=== PATIENT | female | born 1990 | race Caucasian/White ===

== ENCOUNTER 2016-07-18 02:06 | Emergency (ER) | payer OTHER ==
[~2016-07-18] VITALS: Ht 154.9 cm; Wt 66.2 kg
--- NOTE | 2016-07-18 02:53 | ED PSYCHIATRIC COMPLAINT ---
See Addendum History of Present Illness General Chief Complaint: Psychiatric Related Complaint Stated Complaint: +SI Source: patient Exam Limitations: no limitations Vital Signs & Intake/Output Vital Signs & Intake/Output Vital Signs Date Time Temp Pulse Resp B/P Pulse O2 O2 Flow FiO2 Ox Delivery Rate 07/18 0223 98.0 79 18 132/90 100 Room Air Allergies Coded Allergies: MDX - Amoxicillin (AMOXICILLIN) (PETECHIAE 09/23/12) MDX - Fish Oil (FISH OIL) (UNKNOWN 09/23/12) MDX - MILK (MILK) (UNKNOWN 09/23/12) Triage Note: PT TO ED C/O +SI. PT HAS HX OF BIPOLAR DISORDER. PT STATES SHE WOULD LIKE TO TAKE ENTIRE BOTTLE OF TRAZADONE AND SERAQUIL. PT STATES SHE HAS HAD SUICIDAL THOUGHTS BEFORE BUT STATES SHE HAS NEVER "BEEN DESERPATE TO " BEFORE. Triage Nurses Notes Reviewed? yes Onset: Gradual Duration: week(s): Timing: recent history Severity: moderate Associated Symptoms: anxiety, suicidal ideation : No Patient currently breastfeeds: No HPI: 25-year-old woman h/o bipolar disorder stopped her meds several months ago after moving up from [place]. She notes that she has felt suicidal for the past several weeks, and would plan to take seroquel and trazodone pills. She notes no hallucinations, denies drug abuse, and is otherwise well. Past History Travel History Traveled to [place] past 21 day No Medical History Any Pertinent Medical History? see below for history Neurological: NONE EENT: NONE Cardiovascular: NONE Respiratory: asthma Gastrointestinal: NONE Hepatic: NONE Renal: NONE Musculoskeletal: NONE Psychiatric: anxiety, bipolar disease Endocrine: NONE Blood Disorders: NONE Cancer(s): NONE Surgical History Surgical History: none Psychosocial History What is your primary language Turkmen Tobacco Use: Current Daily Use Daily Tobacco Use Amount/Type: =< 4 Cigarettes daily ETOH Use: denies use Illicit Drug Use: denies illicit drug use Family History Hx Contributory? No Review of Systems Review of Systems Constitutional: Reports: no symptoms. EENTM: Reports: no symptoms. Respiratory: Reports: no symptoms. Cardiovascular: Reports: no symptoms. GI: Reports: no symptoms. Genitourinary: Reports: no symptoms. Musculoskeletal: Reports: no symptoms. Skin: Reports: no symptoms. Neurological/Psychological: Reports: no symptoms. Hematologic/Endocrine: Reports: no symptoms. Immunologic/Allergic: Reports: no symptoms. All Other Systems: Reviewed and Negative Physical Exam Physical Exam General Appearance: well developed/nourished, mild distress Head: atraumatic Eyes: Bilateral: normal appearance. Ears, Nose, Throat: normal pharynx, normal ENT inspection, hearing grossly normal Neck: normal inspection, supple Respiratory: normal breath sounds Cardiovascular: regular rate/rhythm Gastrointestinal: soft, non-tender Extremities: normal range of motion Neurological/Psychiatric: anxious, oriented x 3 Appearance/Memory/Insight: disheveled, impaired insight Behavoir/Eye Contact/Speech: cooperative Thoughts/Hallucinations: no apparent hallucination Skin: intact, normal color, warm/dry SAD PERSONS SAD PERSONS Response Value Age <19 or >45 years? yes 1 Rational Thinking Loss? yes 2 Total 3 SAD PERSONS Done? yes Progress Differential Diagnosis: bipolar vs other. Plan of Care: Orders Procedure Date/time Status Regular Diet 07/18 B Active Continuous Observation Monitor 07/18 254 Active ED CRISIS PSYCH CONSULT 07/18 254 Active URINE DRUG SCREEN FOR ER ONLY 07/19 215 Complete HUMAN BETA HCG SCREEN 07/19 215 Complete ETHANOL 07/19 215 Complete COMPREHENSIVE METABOLIC PANEL 07/19 215 Complete CBC WITHOUT DIFFERENTIAL 07/19 215 Complete Laboratory Tests 07/18/16 0250: Anion Gap 10, Estimated GFR > 60, BUN/Creatinine Ratio 18.3, Glucose 102 H, Calcium 9.8, Total Bilirubin 0.6, AST 25, ALT 34, Alkaline Phosphatase 55, Total Protein 7.6, Albumin 4.4, Globulin 3.2, Albumin/Globulin Ratio 1.4, Total Beta HCG NEGATIVE, CBC w Diff NO MAN DIFF REQ, RBC 5.02, MCV 88.6, MCH 29.7, RDW 13.5 , MPV 9.7, Gran % 67.6, Lymphocytes % 23.9, Monocytes % 6.6, Eosinophils % 1.5, Basophils % 0.4, Absolute Granulocytes 6.0, Absolute Lymphocytes 2.1, Absolute Monocytes 0.6, Absolute Eosinophils 0.1, Absolute Basophils 0, PUBS MCHC 33.5, Serum Alcohol < 10.0 07/18/16 0240: Urine Opiates Screen < 100.00, Methadone Screen < 40, Barbiturate Screen < 60, Ur Phencyclidine Scrn < 6.00, Amphetamines Screen < 100, U Benzodiazepines Scrn < 85, Urine Cocaine Screen < 50, Urine Cannabis Screen < 5.00 Hand-Off Endorsed To: SANG PALACIO MD Endorsed Time: 0700 Pending: consult Departure Departure Disposition: STILL A PATIENT Condition: Stable Clinical Impression Primary Impression: Bipolar 1 disorder Secondary Impressions: Suicidal ideation Referrals: PATIENT HAS NO PRIMARY CARE DR (PCP/Family) Departure Forms: Customer Survey General Discharge Information
[2016-07-18 03:07] LABS: ABSOLUTE BASOPHIL COUNT 0 /CUMM (0.0-0.2); ABSOLUTE EOSINOPHIL COUNT 0.1 /CUMM (0.0-0.7); ABSOLUTE LYMPH COUNT 2.1 /CUMM (1.2-3.4); ABSOLUTE MONOCYTE COUNT 0.6 /CUMM (0.10-0.60); BASOPHIL % 0.4 % (0.0-2.0); EOSINOPHIL % 1.5 % (0-5); GRANULOCYTE % 67.6 % (42.2-75.2); HEMATOCRIT 44.5 % (37-47); MEAN CORPUSCULAR HGB 29.7 PG (27.0-31.0); MEAN CORPUSCULAR HGB CONC 33.5 G/DL (33.0-37.0); MEAN CORPUSCULAR VOLUME 88.6 FL (81.0-99.0); MEAN PLATELET VOLUME 9.7 FL (7.4-10.4); PLATELET COUNT 224 /CUMM (130-400); RBC DISTRIBUTION WIDTH 13.5 % (11.5-14.5); RED BLOOD CELL CT 5.02 /CUMM (4.20-5.40); WHITE BLOOD CELL COUNT 8.8 /CUMM (4.8-10.8)
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
[2016-07-18 12:22] VITALS: BP 124/76
--- NOTE | 2016-07-18 13:11 | ED PSYCHIATRIST/APRN CONSULT ---
Psychiatrist/TARRING MACHINE OPERATOR ED Consult Assessment and Plan: Reviewed ED and crisis notes and d/w crisis SW. Met with Fatou and her mother along with crisis SW today. Please see crisis SW notes for details. Briefly, 25 y/o domiciled, employed, engaged to be CF with h/o significant borderline personality disorder recently in residential treatment in [place], presented to overnight "because I was overwhelmed and wasn't sure where I was on the SUDS scale". No acute stressor identified, at that time attempted to call her mother and her fiance neither of whom answered. Then called suicide hotline who recommended ED eval and she drove herself to . Reports chronic thoughts of self-harm and harm to others. Denies ever having done either. Denies any past psychiatric hospitalizations. Highly versed in DBT techniques and described her desire for discharge to use these techniques. She is able to reflect that she was disturbed at not being able to reach anyone to help her. She and her mother agree that he most pressing concern is finding appropriate treatment to continue her DBT skills after her insurance stopped paying for residential treatment. She feels safe to be discharged home with referral for outpatient treatment at . MSE: well-groomed CF sitting on hospital bed. Intense eye contact. Clutching stuffed bear. Mild pmotor agitation. Speech loud, mildly difficult to interrupt, o/w wnl. Mood "I was upset". Affect mildly labile though congruent, non-bizarre. TP perseverative, detail oriented, TC inclusive of numerous psychological medical terminologies. Reports baseline thoughts of self harm with chronic fantasy of taking pills but denies any acute intent to harm herself or others. Cognition was grossly intact. I/J were fair. A/P: Fatou is a 25 y/o CF with borderline personality disorder presenting to in the context of situational feelings of abandonment last evening. She appears to have since reconstituted and while she certainly evidenced a personality structure highly consistent with BPD, she has numerous protective factors currently in place, including her mother staying with her tonight, her mother disposing of any pills around her home (she takes no prescribed meds), her lack of substance abuse, her future orientation toward being engaged to be , and current employment, which she asks us for a "return to work" note so that she can return on Wednesday. The last piece to reduce her risk is referral to [facility] which she is fully accepting of, as well as resources to other DBT-oriented programs in the area, including [facility]. Her BPD does put her at chronic risk, though I do not feel that inpatient hospitalization is warranted at this point and may indeed promote a maladaptive pattern. Her mother, an ER nurse who is very close with her daughter, is in full agreement with this plan. Will discharge home.
== END 2016-07-18 12:23 ==
LOC: ERH 02:06
PROVIDERS: Pediatrics
DX: F31.9 Bipolar disorder, unspecified (principal); R45.851 Suicidal ideations
CPT/HCPCS: 80307; G0463; G0480

== ENCOUNTER 2016-08-06 09:20 | Emergency (ER) | payer OTHER ==
[~2016-08-06] VITALS: Ht 154.9 cm; Wt 67.1 kg
--- NOTE | 2016-08-06 09:59 | ED GI/GU/ABDOMINAL COMPLAINT ---
History of Present Illness General Chief Complaint: Abdominal Pain/Flank Pain Stated Complaint: ABD PAIN Source: patient, old records Exam Limitations: no limitations Vital Signs & Intake/Output Vital Signs & Intake/Output Vital Signs Date Time Temp Pulse Resp B/P B/P Pulse O2 O2 Flow FiO2 Mean Ox Delivery Rate 08/06 1345 97.2 64 16 108/70 98 Room Air 08/06 1237 96.9 66 16 110/62 100 Room Air 08/06 1136 97.3 63 16 115/76 99 Room Air 08/06 0939 98.4 78 16 130/82 98 Room Air Allergies Coded Allergies: latex (Intermediate, HIVES 07/18/16) amoxicillin (PETECHIAE 08/06/16) fish oil (UNKNOWN 08/06/16) milk (UNKNOWN 08/06/16) oxcarbazepine (From TRILEPTAL) (UNKNOWN 07/23/16) Reconcile Medications Dicyclomine Hydrochloride (Bentyl) 10 MG CAPSULE 1 CAP PO TID PRN abdominal cramping Ibuprofen 800 MG TABLET 1 TAB PO Q8 PRN PAIN Ondansetron (Zofran Odt) 4 MG TAB.RAPDIS 1 TAB SL TID PRN nausea Triage Note: 25 Y/0 FEMALE C/O DIFFUSE ABDOMINAL "CRAMPING" SINCE LAST NIGHT. HAD DIARRHEA X 2 DAYS, TOOK IMMODIUM LAST NIGHT AND HAS HAD CRAMPING SINCE, "IT FEELS LIKE I HAVE TO GO BUT THEN DONT". DENIES OTHER COMPLAINTS. AFEBRILE. Triage Nurses Notes Reviewed? yes ? N Is pt currently ? No HPI: Patient is a 25-year-old female presents complaining of diarrhea and diffuse abdominal pain. Symptoms for approximately 1.5-2 days. Approximately 10-12 episodes of diarrhea. Patient took Imodium last night, has not had a bowel movement since then. Since taking the Imodium patient has developed severe cramping diffuse abdominal pain. Symptoms are currently severe. Associated nausea. Patient reports that she has been eating at several restaurants from Wednesday to Wednesday, no nose that she was with has had similar symptoms. Denies sick contacts, recent antibiotic use, fevers, vomiting, hematochezia. Past History Travel History Traveled to [place] past 21 day No Medical History Any Pertinent Medical History? see below for history Neurological: NONE EENT: NONE Cardiovascular: NONE Respiratory: asthma Gastrointestinal: NONE Hepatic: NONE Renal: NONE Musculoskeletal: NONE Psychiatric: anxiety, bipolar disease Endocrine: NONE Blood Disorders: NONE Cancer(s): NONE Surgical History Surgical History: none Psychosocial History Who do you live with Family What is your primary language Setswana Tobacco Use: Current Not Daily Family History Hx Contributory? No Review of Systems Review of Systems Constitutional: Reports: weakness. Denies: chills, fever. EENTM: Reports: no symptoms. Respiratory: Denies: cough, short of breath. Cardiovascular: Denies: chest pain. GI: Reports: see HPI. Genitourinary: Denies: no symptoms (chronic incontinence). Musculoskeletal: Reports: no symptoms. Skin: Reports: no symptoms. Neurological/Psychological: Reports: no symptoms. Hematologic/Endocrine: Reports: no symptoms. Immunologic/Allergic: Reports: no symptoms. Physical Exam Physical Exam General Appearance: well developed/nourished, alert, awake Head: atraumatic, normal appearance Eyes: Bilateral: normal appearance, PERRL, EOMI. Ears, Nose, Throat, Mouth: hearing grossly normal, moist mucous membrane Neck: normal inspection, supple, full range of motion Respiratory: normal breath sounds, chest non-tender, no respiratory distress, lungs clear Cardiovascular: regular rate/rhythm Gastrointestinal: normal bowel sounds, soft, diffuse tenderness with mild guarding. Back: normal inspection, normal range of motion Extremities: normal range of motion Neurologic/Psych: no motor/sensory deficits, awake, alert, oriented x 3, normal gait, normal mood/affect Skin: intact, normal color, warm/dry Core Measures ACS in differential dx? No Severe Sepsis Present: No Septic Shock Present: No Progress Differential Diagnosis: GASTROENTERITIS, INFECTIOUS COLITIS, FOOD POISONING, ELECTROLYTE ABNORMALITY, DEHYDRATION, SEPSIS Plan of Care: Orders Procedure Date/time Status Regular Diet 08/06 L Active CULTURE,STOOL 08/06 1015 Active COMPREHENSIVE METABOLIC PANEL 08/06 1015 Complete CBC WITHOUT DIFFERENTIAL 08/06 1015 Complete URINE 08/06 0941 Complete URINALYSIS 08/06 0941 Complete Laboratory Tests 08/06/16 1120: Urine Color YEL, Urine Clarity CLEAR, Urine pH 6.0, Ur Specific [place] <= 1.005 , Urine Protein NEG, Urine Ketones NEG, Urine Nitrite NEG, Urine Bilirubin NEG, Urine Urobilinogen 0.2, Ur Leukocyte Esterase NEG, Ur Microscopic EXAM NOT REQUIRED, Urine Hemoglobin NEG, Urine Glucose NEG, Urine Test NEGATIVE 08/06/16 1035: Anion Gap 10, Estimated GFR > 60, BUN/Creatinine Ratio 10.0, Glucose 84, Calcium 8.6, Total Bilirubin 0.5, AST 24, ALT 35, Alkaline Phosphatase 46, Total Protein 6.5, Albumin 3.7, Globulin 2.8, Albumin/Globulin Ratio 1.3, CBC w Diff NO MAN DIFF REQ, RBC 4.74, MCV 88.4, MCH 29.5, RDW 13.6, MPV 9.4, Gran % 65.4, Lymphocytes % 21.6, Monocytes % 11.8 H, Eosinophils % 0.8, Basophils % 0.4, Absolute Granulocytes 2.3, Absolute Lymphocytes 0.8 L, Absolute Monocytes 0.4, Absolute Eosinophils 0, Absolute Basophils 0, PUBS MCHC 33.4 Microbiology 08/06 1015 STOOL: Stool Culture - ORD 08/06/2016 12:55:45 PM: Results of CT scan and labs discussed with patient. Patient appears to be resting comfortably. Continues with moderate cramping. No episodes of diarrhea in the emergency department. Bentyl ordered. Patient tolerating food appropriately. Patient nontoxic appearing. Appears stable for discharge (KINJAL QUILES,BYRON) Diagnostic Imaging: Viewed by Me: CT Scan. Discussed w/RAD: CT Scan. Radiology Impression: PATIENT: EDGARD LÓPEZ PRESENT AGE: 25 PATIENT ACCOUNT NO: [id number] : 92 LOCATION: [facility] ORDERING PHYSICIAN: BYRON QUILES SERVICE DATE: 08/06/16 EXAM TYPE: CAT - CT ABD & PELVIS W IV CONTRAST EXAMINATION: CT ABDOMEN AND PELVIS WITH CONTRAST CLINICAL INFORMATION: Abdominal pain and tenderness. Diarrhea. COMPARISON: None. TECHNIQUE: Multidetector volumetric imaging was performed of the abdomen and pelvis before and after the IV administration of 94 mL of Optiray 320 intravenous contrast. Sagittal and coronal reformatted images were obtained on the technologist's workstation. DLP: 335 mGy-cm. FINDINGS: LUNG BASES: Unremarkable. LIVER AND SPLEEN: Unremarkable. PANCREAS GALLBLADDER AND BILIARY TREE: Unremarkable. KIDNEYS, URETERS, AND ADRENALS: Unremarkable. URINARY BLADDER: Unremarkable. GI TRACT: Unremarkable. There are multiple small nonspecific-appearing lymph nodes along the small bowel mesentery without evidence of soft tissue stranding. Findings are nonspecific, however mesenteric panniculitis can have a similar appearance as can inflammatory bowel disease and lymphoma, however bowel loops appear unremarkable, and no pathologic-appearing sized lymph nodes are seen. PERITONEAL CAVITY: There is a small amount of intraperitoneal free fluid in the cul-de-sac. RETROPERITONEUM: Unremarkable. PELVIC ORGANS: The ovaries are somewhat asymmetric with the left side being larger than the right with probable multiple small cysts, there is a small amount of free fluid in the cul-de-sac. Ultrasound could be performed to further evaluate if indicated clinically. There are no inflammatory changes to suggest an infectious process. Both ovaries are enhancing so torsion would be unlikely as well. OSSEOUS STRUCTURES: Unremarkable. ANTERIOR ABDOMINAL WALL AND SOFT TISSUES: Unremarkable. IMPRESSION: 1. Multiple small nonspecific lymph nodes in the mesentery as noted above. There is no evidence of colitis or enteritis. 2. Subtle cystic changes in the left ovary which is slightly larger than the right with small amount of fluid in the cul-de-sac. DICTATED BY: DEON CARVALHO MD DATE/TIME DICTATED:08/06/161211 PLASTIC EXTRUDING MACHINE OPERATOR:KATIE DATE/TIME TRANSCRIBED:08/06/161211 CONFIDENTIAL, DO NOT COPY WITHOUT APPROPRIATE AUTHORIZATION. <Electronically signed in Other Vendor System> SIGNED BY: DEON CARVALHO MD 08/06/16 1246 Initial ED EKG: none Departure Departure Disposition: HOME OR SELF CARE Condition: Stable Clinical Impression Primary Impression: Diarrhea Qualifiers: Diarrhea type: unspecified type Qualified Code: R19.7 - Diarrhea, unspecified Secondary Impressions: Ovarian cyst Qualifiers: Laterality: left Qualified Code: N83.202 - Unspecified ovarian cyst , left side Referrals: PATIENT HAS NO PRIMARY CARE DR (PCP/Family) Additional Instructions: Drink plenty of fluids. Return to the ER if fevers, unable to stay hydrated, pain uncontrollable or worsening of symptoms. Departure Forms: Customer Survey General Discharge Information Prescriptions: Current Visit Scripts Dicyclomine Hydrochloride (Bentyl) 1 CAP PO TID PRN abdominal cramping #10 CAP Ibuprofen 1 TAB PO Q8 PRN PAIN #20 TAB Ondansetron (Zofran Odt) 1 TAB SL TID PRN nausea #10 TAB
[2016-08-06 10:48] LABS: ABSOLUTE BASOPHIL COUNT 0 /CUMM (0.0-0.2); ABSOLUTE EOSINOPHIL COUNT 0 /CUMM (0.0-0.7); ABSOLUTE GRANULOCYTE CT 2.3 /CUMM (1.4-6.5); ABSOLUTE LYMPH COUNT 0.8 /CUMM (1.2-3.4); ABSOLUTE MONOCYTE COUNT 0.4 /CUMM (0.10-0.60); BASOPHIL % 0.4 % (0.0-2.0); EOSINOPHIL % 0.8 % (0-5); GRANULOCYTE % 65.4 % (42.2-75.2); MEAN CORPUSCULAR HGB 29.5 PG (27.0-31.0); MEAN CORPUSCULAR HGB CONC 33.4 G/DL (33.0-37.0); MEAN CORPUSCULAR VOLUME 88.4 FL (81.0-99.0); MEAN PLATELET VOLUME 9.4 FL (7.4-10.4); PLATELET COUNT 176 /CUMM (130-400); RBC DISTRIBUTION WIDTH 13.6 % (11.5-14.5); RED BLOOD CELL CT 4.74 /CUMM (4.20-5.40); WHITE BLOOD CELL COUNT 3.6 /CUMM (4.8-10.8)
--- NOTE | 2016-08-06 12:46 | CT SCAN REPORT ---
EXAMINATION: CT ABDOMEN AND PELVIS WITH CONTRAST CLINICAL INFORMATION: Abdominal pain and tenderness. Diarrhea. COMPARISON: None. TECHNIQUE: Multidetector volumetric imaging was performed of the abdomen and pelvis before and after the IV administration of 94 mL of Optiray 320 intravenous contrast. Sagittal and coronal reformatted images were obtained on the technologist's workstation. DLP: 335 mGy-cm. FINDINGS: LUNG BASES: Unremarkable. LIVER AND SPLEEN: Unremarkable. PANCREAS GALLBLADDER AND BILIARY TREE: Unremarkable. KIDNEYS, URETERS, AND ADRENALS: Unremarkable. URINARY BLADDER: Unremarkable. GI TRACT: Unremarkable. There are multiple small nonspecific-appearing lymph nodes along the small bowel mesentery without evidence of soft tissue stranding. Findings are nonspecific, however mesenteric panniculitis can have a similar appearance as can inflammatory bowel disease and lymphoma, however bowel loops appear unremarkable, and no pathologic-appearing sized lymph nodes are seen. PERITONEAL CAVITY: There is a small amount of intraperitoneal free fluid in the cul-de-sac. RETROPERITONEUM: Unremarkable. PELVIC ORGANS: The ovaries are somewhat asymmetric with the left side being larger than the right with probable multiple small cysts, there is a small amount of free fluid in the cul-de-sac. Ultrasound could be performed to further evaluate if indicated clinically. There are no inflammatory changes to suggest an infectious process. Both ovaries are enhancing so torsion would be unlikely as well. OSSEOUS STRUCTURES: Unremarkable. ANTERIOR ABDOMINAL WALL AND SOFT TISSUES: Unremarkable. IMPRESSION: 1. Multiple small nonspecific lymph nodes in the mesentery as noted above. There is no evidence of colitis or enteritis. 2. Subtle cystic changes in the left ovary which is slightly larger than the right with small amount of fluid in the cul-de-sac.
[2016-08-06] MEDS ORDERED: BENTYL10 M1 PO (13:03)
[2016-08-06] MEDS ORDERED: ZOFRAN ODT4 M1 SL (13:03)
[2016-08-06] MEDS ORDERED: IBUPROFEN800 M1 PO (13:03)
[2016-08-06 13:45] VITALS: BP 108/70
== END 2016-08-06 13:51 ==
LOC: ERH 09:20
PROVIDERS: Physician Assistant
DX: N83.202 Unspecified ovarian cyst, left side (principal); R19.7 Diarrhea, unspecified
CPT/HCPCS: 74177; 81003; 81025; 87045; 96374; 96375; J1885